=== PATIENT | female | born 1990 | race African-American/Black ===

== ENCOUNTER 2019-03-11 18:42 | Inpatient (IN) | payer BC ==
[~2019-03-11] VITALS: Ht 162.6 cm; Wt 125.6 kg
[2019-03-11 19:15] VITALS: Ht 162.6 cm; Wt 125.6 kg
[2019-03-11 19:39] LABS: BASOPHIL % 0.9 % (0-2); PLATELET COUNT 233 x10^3mcL (130-400); RED CELL DISTRIBUTION WIDTH 12.9 % (11.5-14.5)
[2019-03-11 19:57] LABS: CALCIUM 8.9 mg/dL (8.5-10.1); CARBON DIOXIDE 27.3 mmol/L (21-32); CHLORIDE SERUM 100 mmol/L (98-107); CREATININE SERUM 0.9 mg/dL (0.6-1.0); GFR1 > 60 mL/min; GLUCOSE SERUM 88 mg/dL (74-106); POTASSIUM SERUM 3.7 mmol/L (3.5-5.1); SODIUM SERUM 138 mmol/L (136-145)
[2019-03-11 20:04] LABS: ALKALINE PHOSPHATASE 68 U/L (46-116); ALT/SGPT 23 U/L (14-59); AST/SGOT 19 U/L (15-37); BILIRUBIN TOTAL 0.83 mg/dL (0.20-1.00); LIPASE 71 IU/L (73-393); TOTAL PROTEIN, SERUM 8.1 g/dL (6.4-8.2)
--- NOTE | 2019-03-11 20:53 | NUR ---
PT PRESENTS TO ED WITH MOTHER AT BEDSIDE WITH C/C OF LEFT UPPER QUADRANT PAIN. PT VERBALIZED +NAUSEA AND VOMITING. -DIAHRREA OR FEVER PT IS A/O X 4 SPEECH MOOD AFFECT WNL. RESPIRATIONS E/U. ABDOMIN IS OBESE AND SOFT. +TTP TO LUQ. BS TO ALL FOUR QUADRANTS. NO S/S OF DISTRESS. URINE COLLECTED. WILL CONTINUE TO MONITOR AND AWAIT MSE
--- NOTE | 2019-03-11 21:22 | NUR ---
3 UNSUCCESSFUL IV ATTEMPTS BY MYSELF DAPHNIE CARLOS. NAOMI CARLOS AT BEDSIDE FOR ADDITIONAL ATTEMPTS.
[2019-03-11 21:31] LABS: microscopic required? YES; urine erythrocyte 3+ (NEGATIVE)
--- NOTE | 2019-03-11 23:03 | NUR ---
PT MEDICATED ON BEHALF OF PRIMARY CARE RN. PT AAOX3, BREATHING EASY AND UNLABORED, SPEAKS IN FULL CLEAR SENTENCES, AND IN NO OBVIOUS DISTRESS AT THIS TIME. MOTHER REMAINS AT BEDSIDE.
--- NOTE | 2019-03-12 00:48 | NUR ---
PT BEING ADMITTED. PRIMARY CARE RN, MORGAN, MADE AWARE.
--- NOTE | 2019-03-12 01:48 | NUR ---
PT ADMITTED (TELE) - REPORT GIVEN ON BEHALD OF PRIMARY CARE RN TO SLADE RN. OPPORTUNITY GIVEN TO ASK QUESTIONS. PT BEING TRANSPORTED TO FLOOR BY RN AND EMT. NO OBVIOUS DISTRESS AT THIS TIME.
[2019-03-12 02:00] LABS: MAGNESIUM 2.1 mg/dL (1.8-2.4); PHOSPHOROUS 4.1 mg/dL (2.5-4.9)
--- NOTE | 2019-03-12 02:30 | NUR ---
RECIEVED PATIENT FROM ER VIA GURNEY, ABLE TO AMBULATE TO BED INDEPENDENTLY. A/O X4. CALM AND COOPERATIVE. FOLLOWS COMMANDS. ABLE TO MAKE NEEDS KNOWN. PATIENT ORIENTED TO ROOM AND USE OF CALL LIGHT. VITALS ARE WNL.NO SOB NOTED ON RA. LUNGS ARE DIMINISHED IN ALL LOBES (PATIENT IS OBESE). ON TELE MONITOR 22, NSR. BS ACTIVE. ABDOMEN ROUND AND SOFT. PATIENT REPORTS INTERMITTENT N/V. LAST EMESIS 5/6. PATIENT ALSO REPORTS 9/10 LUQ ABDOMINAL PAIN THAT SHE HAS BEEN HAVING FOR [address] SHOWS LEFT KIDNEY CYST. PATIENT DIAGNOSIS IS PYLONEPHRITIS. UA OBTAINED AND SENT TO LAB. MRSA SWAB OBTAINED. IV TO LH IS SALINE LOCKED. BED LOCKED AND IN LOWEST POSITION. CALL LIGHT AND BEDSIDE TABLE WITHIN REACH. WILL CONTINUE TO MONITOR.
[2019-03-12 02:39] VITALS: BP 113/82
--- NOTE | 2019-03-12 03:00 | NUR ---
PATIENT GIVEN NORCO PO PER EMAR FOR 9/10 LUQ ABDOMINAL PAIN.
[2019-03-12 03:21] LABS: AMPHETAMINE QUAL UR NONE DETECTED (See below)
[2019-03-12 05:51] VITALS: BP 92/64
[2019-03-12 06:45] LABS: CALCIUM 8.7 mg/dL (8.5-10.1); CARBON DIOXIDE 28.6 mmol/L (21-32); CHLORIDE SERUM 102 mmol/L (98-107); CREATININE SERUM 0.9 mg/dL (0.6-1.0); GFR1 > 60 mL/min; GLUCOSE SERUM 98 mg/dL (74-106); POTASSIUM SERUM 3.7 mmol/L (3.5-5.1); SODIUM SERUM 140 mmol/L (136-145)
--- NOTE | 2019-03-12 06:51 | NUR ---
NO FURTHER SIGNIFICANT EVENTS THIS SHIFT. IV INFUSING WELL. CALL LIGHT WITHIN REACH. WILL ENDORSE CARE TO MORNING NURSE.
[2019-03-12 07:09] LABS: BASOPHIL % 0.2 % (0-2); PLATELET COUNT 196 x10^3mcL (130-400); RED CELL DISTRIBUTION WIDTH 12.8 % (11.5-14.5)
--- NOTE | 2019-03-12 07:49 | NUR ---
RECEIVED PT FROM LEAVING NURSE. PT IS AA/O X 4. PT COMPLAIN OF NAUSEA, WILL PROVIDE ZOFRAM TO MANAGE PER PRN ORDER. PT ABD PAIN RADIATE FROM FRONT TO BACK, PAIN IS ABLE TO MANAGE BY REPOSITION AT THIS TIME. PT BREATHING ON RA, EVEN, UNLABORED. IV SITE PATENT, INTACT. IVF INFUSING WELL.
[2019-03-12 09:30] VITALS: BP 100/50
[2019-03-12] MEDS ORDERED: DOX100 PO (12:07)
[2019-03-12] MEDS ORDERED: FLA500 PO (12:07)
[2019-03-12] MEDS ORDERED: LAC PO (12:08)
[2019-03-12 12:41] VITALS: BP 90/51
[2019-03-12 12:59] VITALS: BP 90/51
--- NOTE | 2019-03-12 14:00 | NUR ---
PT IS READY TO DISCHARGE. DISCHARGE INSTRUCTION AND RESCRIPTION GIVEN. PT'S MOM IS CALLED AND MADE AWARE. SHE WILL DEPARTURE CLERK PT IN A HOUR. PT NO COMPLAIN OF PAIN AT THIS TIME. BREATHING ON RA, EVEN, UNLABORED. NO DISTRESSED NOTED AT THIS TIME. IV IS REMOVED BY STUDENT NURSE WITH PROFESSOR SUPERVISED.
== END 2019-03-12 15:00 | disposition home or self-care (01) | DRG 463 ==
LOC: ED 18:42 → DU 03-12 01:12
PROVIDERS: Emergency Medicine; Family Medicine; ADMIT Internal Medicine
DX: N10 Acute pyelonephritis (principal); N17.0 Acute kidney failure with tubular necrosis; F31.9 Bipolar disorder, unspecified; E66.01 Morbid (severe) obesity due to excess calories; F12.10 Cannabis abuse, uncomplicated; R80.9 Proteinuria, unspecified; Z68.42 Body mass index [BMI] 45.0-49.9, adult
CPT/HCPCS: 87491; 87591; J0696; J1885; J2405; J3490; J7030; Q0092

== ENCOUNTER 2019-05-25 22:23 | Emergency (ER) | payer BC ==
[~2019-05-25] VITALS: Ht 162.6 cm; Wt 126.7 kg
[~2019-05-25 22:23] MED LIST: DOX100 PO; FLA500 PO; LAC PO
[2019-05-25 22:26] VITALS: Ht 162.6 cm; Wt 126.7 kg
[2019-05-26 00:54] VITALS: BP 140/94
== END 2019-05-26 00:54 | disposition home or self-care (01) ==
LOC: ED 22:23
DX: S29.011A Strain of muscle and tendon of front wall of thorax, initial encounter (principal); M94.0 Chondrocostal junction syndrome [Tietze]; Z87.442 Personal history of urinary calculi; X58.XXXA Exposure to other specified factors, initial encounter; Y93.89 Activity, other specified; Y92.89 Other specified places as the place of occurrence of the external cause; Y99.8 Other external cause status
CPT/HCPCS: 82962; J1885; Q0092

== ENCOUNTER 2019-07-31 11:03 | Emergency (ER) | payer BC ==
[~2019-07-31] VITALS: Ht 162.6 cm; Wt 120.2 kg
[2019-07-31 11:24] VITALS: Ht 162.6 cm; Wt 120.2 kg
[2019-07-31 12:07] LABS: BASOPHIL % 0.3 % (0-2); PLATELET COUNT 248 x10^3mcL (130-400)
[2019-07-31 12:20] LABS: CALCIUM 8.7 mg/dL (8.5-10.1); CARBON DIOXIDE 29.6 mmol/L (21-32); CHLORIDE SERUM 105 mmol/L (98-107); GFR1 > 60 mL/min; GLUCOSE SERUM 125 mg/dL (74-106); SODIUM SERUM 141 mmol/L (136-145)
[2019-07-31 12:24] LABS: ALBUMIN 3.9 g/dL (3.4-5.0); ALKALINE PHOSPHATASE 72 U/L (46-116); ALT/SGPT 17 U/L (14-59); AST/SGOT 14 U/L (15-37); BILIRUBIN TOTAL 0.8 mg/dL (0.20-1.00); LIPASE 104 IU/L (73-393); TOTAL PROTEIN, SERUM 7.5 g/dL (6.4-8.2)
[2019-07-31 13:46] VITALS: BP 140/91
== END 2019-07-31 14:09 | disposition home or self-care (01) ==
LOC: ED 11:03
PROVIDERS: Emergency Medicine
DX: N28.1 Cyst of kidney, acquired (principal); F31.9 Bipolar disorder, unspecified
CPT/HCPCS: J1885; J2405; J7030